=== PATIENT | male | born 1945 | race Caucasian/White ===

== ENCOUNTER 2017-11-24 05:41 | Day surgery (SDC) | payer MEDICARE ==
[2017-11-20 14:57] VITALS: BP 95/66
[2017-11-24] VITALS (11 sets, daily range): BP systolic 100–120; BP diastolic 54–67
[~2017-11-24] VITALS: Ht 170.2 cm; Wt 89.2 kg
[~2017-11-24 05:41] MED LIST: ACET1TAB12 PO; ATOR10 PO; CITA40TA14 PO; METO10TA3 PO; NEBI5TAB8 PO; OMEP20TA25 PO; SACU1TAB PO; TIZA4TAB4 PO; TRAZ-144 PO; [UNRECOGNIZED DRUG - CODE] PO
[2017-11-24] MEDS ORDERED: ISOVUE-M 200 20 ML VIAL IT ONE (06:58)
== END 2017-11-24 11:30 | disposition home or self-care (01) ==
LOC: DAH 05:41
PROVIDERS: ATTEND Neurological Surgery
DX: M54.16 Radiculopathy, lumbar region (principal); M48.061 Spinal stenosis, lumbar region without neurogenic claudication; M41.86 Other forms of scoliosis, lumbar region
CPT/HCPCS: 62304; 72132; Q9966

== ENCOUNTER 2018-03-08 15:00 | Inpatient (IN) | payer MEDICARE ==
[~2018-03-08] VITALS: Ht 167.6 cm; Wt 86.0 kg
[2018-03-08 12:54] VITALS: BP 105/61
[2018-03-08 13:14] LABS: BASOPHILS % (AUTO) 0.8 % (0.0-5.0); EOSINOPHILS % (AUTO) 2.7 % (0.0-8.0); HEMATOCRIT 35.5 % (42-54); LYMPHOCYTES % (AUTO) 15.4 % (21.0-51.0); MEAN CORPUSCULAR HEMOGLOBIN 31.2 pg (27.0-33.0); MEAN CORPUSCULAR HGB CONC 35.4 g/dL (32.0-36.0); MEAN CORPUSCULAR VOLUME 88.1 fL (79-99); MONOCYTES % (AUTO) 8.7 % (3.0-13.0); NEUTROPHILS % (AUTO) 72.4 % (40.0-77.0); NUCLEATED RED BLOOD CELLS 0.2 % (0.0-0.19); PLATELET COUNT (AUTO) 111 K/uL (130-400); RED BLOOD CELL COUNT(AUTO) 4.03 MIL/uL (4.50-6.20); RED CELL DISTRIBUTION WIDTH 13.4 % (11.0-15.5)
[2018-03-08 13:20] LABS: CREATININE 1.1 mg/dL (0.5-1.5); POTASSIUM 4.2 mmol/L (3.5-5.1)
[~2018-03-08 15:00] MED LIST changes: -ACET1TAB12 PO; -METO10TA3 PO; -TIZA4TAB4 PO; -TRAZ-144 PO; +TRAZ-185 PO; -[UNRECOGNIZED DRUG - CODE] PO
[2018-03-10] VITALS (48 sets, daily range): BP systolic 74–114; BP diastolic 41–64
[2018-03-10] MEDS ORDERED: LACTATED RINGERS 1000ML 1,000 ML IV ONE (06:16)
[2018-03-10] MEDS ORDERED: DURAMORPH PF1 MG/ML 10ML AMP IV ONE (06:43)
[2018-03-10] MEDS ORDERED: THROMBIN-JMI 20000 UNIT KIT TP ONE (06:44)
[2018-03-10] MEDS ORDERED: BACITRACIN 50,000 UNIT VIAL ONE ×2 (06:44→08:20)
[2018-03-10] MEDS: BUPIVACAINE/EPI/PF 0.25% 50 ML VIAL IV SCH ×2 (06:45→08:03)
[2018-03-10] MEDS ORDERED: LIDOCAINE PF 2% 5ML ABBOJECT ONE (07:12)
[2018-03-10] MEDS ORDERED: ONDANSETRON HCL 4 MG/2 ML VIAL ONE ×2 (07:12→10:14)
[2018-03-10] MEDS ORDERED: NEOSTIGMINE 5MG/5ML SYR IV ONE (07:12)
[2018-03-10] MEDS ORDERED: GLYCOPYRROLATE 0.2 MG/ML 5 ML VIAL ONE (07:12)
[2018-03-10] MEDS ORDERED: DEXAMETHASONE SOD PHOSPHATE 10MG/ML 1ML VIAL ONE ×2 (07:12→10:14)
[2018-03-10] MEDS ORDERED: PROPOFOL 10 MG/ML 20ML VIAL IV ONE (07:14)
[2018-03-10] MEDS ORDERED: FENTANYL CITRATE PF 50 MCG/1 ML 2ML VIAL ONE ×6 (07:14→16:13)
[2018-03-10] MEDS ORDERED: MIDAZOLAM HCL 1 MG/ML 2ML VIAL ONE ×2 (07:14→07:15)
[2018-03-10] MEDS: CEFAZOLIN SODIUM 1 GM VIAL ONE ×2 (07:20→07:40)
[2018-03-10] MEDS ORDERED: EPHEDRINE SULFATE 50 MG/ML AMPULE ONE ×2 (07:38→12:23)
[2018-03-10] MEDS ORDERED: PHYTONADIONE 10 MG/1 ML AMP SQ SCH (10:09)
[2018-03-10] MEDS ORDERED: ESMOLOL HCL 10 MG/ML 10 ML VIAL ONE (10:10)
[2018-03-10] MEDS ORDERED: METOCLOPRAMIDE 10 MG/2 ML VIAL ONE (10:13)
[2018-03-10] MEDS ORDERED: SUCCINYLCHOLINE CHLORIDE 20 MG/ML 10 ML VIAL ONE (10:13)
[2018-03-10] MEDS ORDERED: ROCURONIUM BROMIDE 10MG/1ML 5ML VL ONE ×2 (10:13)
[2018-03-10] MEDS ORDERED: LIDOCAINE HCL 4% LTA SOL 4 ML VIAL ONE (10:14)
[2018-03-10] MEDS ORDERED: PHENYLEPHRINE HCL 10 MG/ML 1ML VIAL IV ONE (10:14)
[2018-03-10 10:27] LABS: INR 1.15 (0.85-1.15); PARTIAL THROMBOPLASTIN TIME 26.9 SEC (26.3-35.5)
[2018-03-10 11:03] LABS: PLATELET FUNCTION ANALYSIS ADP > 300 SEC (62-100); PLATELET FUNCTION ANALYSIS EPI > 300 SEC (55-192)
[2018-03-10 11:25] LABS: HEMATOCRIT 29.4 % (42-54); PLATELET COUNT (AUTO) 110 K/uL (130-400)
[2018-03-10] MEDS: LACTATED RINGERS 1000ML 1,000 ML IV SCH ×2 (11:33→23:56)
[2018-03-10] MEDS ORDERED: CEFAZOLIN SODIUM 1 GM VIAL ONE (11:37)
[2018-03-10] MEDS ORDERED: CEFAZOLIN SODIUM 1 GM VIAL IVP SCH (11:45)
[2018-03-10] MEDS ORDERED: SODIUM CHLORIDE 0.9% 10 ML VIAL IVP PRN (11:45)
[2018-03-10] MEDS ORDERED: PROMETHAZINE HCL 25 MG/ML 1ML AMPULE IM PRN (11:45)
[2018-03-10] MEDS ORDERED: CEFAZOLIN 2GM / 50 ML 50 ML IV SCH (11:45)
[2018-03-10] MEDS: DEXAMETHASONE SOD PHOSPHATE 4 MG/ML 1ML VIAL IVP SCH ×3 (11:45→23:49)
[2018-03-10 12:26] LABS: HEMATOCRIT 25.5 % (42-54)
[2018-03-10] MEDS ORDERED: NOREPINEPHRINE 4MG/NS 250ML 250 ML IV SCH (14:10)
[2018-03-10 14:26] LABS: HEMATOCRIT 23.4 % (42-54); MEAN CORPUSCULAR HEMOGLOBIN 31.4 pg (27.0-33.0); MEAN CORPUSCULAR HGB CONC 36.2 g/dL (32.0-36.0); MEAN CORPUSCULAR VOLUME 86.6 fL (79-99); NUCLEATED RED BLOOD CELLS 0.1 % (0.0-0.19); PLATELET COUNT (AUTO) 98 K/uL (130-400); RED CELL DISTRIBUTION WIDTH 13.2 % (11.0-15.5); WHITE BLOOD COUNT (AUTO) 7.8 K/uL (4.8-10.8)
[2018-03-10] MEDS ORDERED: MORPHINE SULFATE 4 MG/1ML SYG ONE (14:57)
[2018-03-10] MEDS ORDERED: HYDROMORPHONE HCL 2 MG/ML VIAL IVP PRN (17:45)
[2018-03-10] MEDS: HYDROMORPHONE 1 MG/1 ML AMP IVP PRN (18:12)
[2018-03-10] MEDS ORDERED: NEBIVOLOL HCL 5 MG TABLET PO SCH (21:00)
[2018-03-10] MEDS: TRAZODONE HCL 50 MG TAB PO SCH (21:00)
[2018-03-10] MEDS ORDERED: ENTRESTO PO SCH (21:00)
[2018-03-10] MEDS: CITALOPRAM 20 MG TABLET PO SCH (21:00)
[2018-03-10] MEDS: MORPHINE SULFATE 2 MG/ML 1ML SYG IVP PRN (21:43)
[2018-03-11] VITALS (35 sets, daily range): BP systolic 66–153; BP diastolic 34–86
[2018-03-11] MEDS: MORPHINE SULFATE 2 MG/ML 1ML SYG IVP PRN ×4 (01:36→11:30)
[2018-03-11] MEDS: DEXAMETHASONE SOD PHOSPHATE 4 MG/ML 1ML VIAL IVP SCH ×4 (05:30→23:55)
[2018-03-11 05:46] LABS: HEMATOCRIT 23.7 % (42-54); MEAN CORPUSCULAR HEMOGLOBIN 30.6 pg (27.0-33.0); MEAN CORPUSCULAR HGB CONC 35.3 g/dL (32.0-36.0); MEAN CORPUSCULAR VOLUME 86.7 fL (79-99); NUCLEATED RED BLOOD CELLS 0.1 % (0.0-0.19); PLATELET COUNT (AUTO) 101 K/uL (130-400); RED BLOOD CELL COUNT(AUTO) 2.73 MIL/uL (4.50-6.20); RED CELL DISTRIBUTION WIDTH 13.2 % (11.0-15.5); WHITE BLOOD COUNT (AUTO) 12.6 K/uL (4.8-10.8)
[2018-03-11 06:04] LABS: CREATININE 1.1 mg/dL (0.5-1.5)
[2018-03-11] MEDS: BUPIVACAINE/EPI/PF 0.25% 50 ML VIAL IV SCH (06:45)
[2018-03-11] MEDS ORDERED: NOREPINEPHRINE 4MG/NS 250ML 250 ML IV SCH (07:45)
[2018-03-11] MEDS: PANTOPRAZOLE SODIUM 40 MG TABLET.DR PO SCH (07:46)
[2018-03-11] MEDS: ATORVASTATIN CALCIUM 10 MG TABLET PO SCH (07:46)
[2018-03-11] MEDS: HYDROCODONE/ACETAMINOPHEN 5/325 MG TAB PO PRN ×2 (07:46→11:04)
[2018-03-11] MEDS ORDERED: ENTRESTO PO SCH (09:00)
[2018-03-11] MEDS: LACTATED RINGERS 1000ML 1,000 ML IV SCH (13:32)
[2018-03-11] MEDS: TRAMADOL HCL 50 MG TABLET PO PRN ×2 (14:05→20:23)
[2018-03-11] MEDS: HYDROMORPHONE 1 MG/1 ML AMP IVP PRN (15:01)
[2018-03-11] MEDS: TRAZODONE HCL 50 MG TAB PO SCH (20:23)
[2018-03-11] MEDS: CITALOPRAM 20 MG TABLET PO SCH (20:23)
[2018-03-12] VITALS (13 sets, daily range): BP systolic 84–110; BP diastolic 37–69
[2018-03-12] MEDS: TRAMADOL HCL 50 MG TABLET PO PRN (02:29)
[2018-03-12 05:01] LABS: BASOPHILS % (AUTO) 0.2 % (0.0-5.0); EOSINOPHILS % (AUTO) 0.3 % (0.0-8.0); MEAN CORPUSCULAR HEMOGLOBIN 31.9 pg (27.0-33.0); MEAN CORPUSCULAR HGB CONC 36.7 g/dL (32.0-36.0); MEAN CORPUSCULAR VOLUME 86.9 fL (79-99); MONOCYTES % (AUTO) 7.9 % (3.0-13.0); NEUTROPHILS % (AUTO) 79.6 % (40.0-77.0); NUCLEATED RED BLOOD CELLS 0.2 % (0.0-0.19); PLATELET COUNT (AUTO) 83 K/uL (130-400); RED BLOOD CELL COUNT(AUTO) 2.53 MIL/uL (4.50-6.20); RED CELL DISTRIBUTION WIDTH 13.3 % (11.0-15.5); WHITE BLOOD COUNT (AUTO) 10.1 K/uL (4.8-10.8)
[2018-03-12 05:11] LABS: INR 1.1 (0.85-1.15); PARTIAL THROMBOPLASTIN TIME 25.2 SEC (26.3-35.5); PROTHROMBIN TIME 11.5 SEC (9.6-11.6)
[2018-03-12 05:16] LABS: CREATININE 0.9 mg/dL (0.5-1.5); MAGNESIUM 1.8 mg/dL (1.80-2.40)
[2018-03-12] MEDS: DEXAMETHASONE SOD PHOSPHATE 4 MG/ML 1ML VIAL IVP SCH (06:21)
[2018-03-12] MEDS ORDERED: SENNOSIDES 8.6 MG TABLET PO PRN (08:00)
[2018-03-12] MEDS: ATORVASTATIN CALCIUM 10 MG TABLET PO SCH (08:22)
[2018-03-12] MEDS: PANTOPRAZOLE SODIUM 40 MG TABLET.DR PO SCH (08:22)
[2018-03-12] MEDS: DOCUSATE SODIUM 100 MG CAP PO SCH ×2 (09:00→13:15)
== END 2018-03-12 16:35 | disposition home or self-care (01) | DRG 459 ==
LOC: EDSTATUS 15:00 → DAHIP 03-10 05:57 → 2CH 03-10 17:18
PROVIDERS: ADMIT Neurological Surgery; ATTEND Neurological Surgery
PROC: 0SG30K1 Fusion of Lumbosacral Joint with Nonautologous Tissue Substitute, Posterior Approach, Posterior Column, Open Approach (ICD-10-PCS; principal; 2018-03-10 07:37)
PROC: 01NB0ZZ Release Lumbar Nerve, Open Approach (ICD-10-PCS; 2018-03-10 07:37)
PROC: 30233L1 Transfusion of Nonautologous Fresh Plasma into Peripheral Vein, Percutaneous Approach (ICD-10-PCS; 2018-03-10 07:37)
PROC: 30233R1 Transfusion of Nonautologous Platelets into Peripheral Vein, Percutaneous Approach (ICD-10-PCS; 2018-03-10 07:37)
PROC: 30233K1 Transfusion of Nonautologous Frozen Plasma into Peripheral Vein, Percutaneous Approach (ICD-10-PCS; 2018-03-10 07:37)
DX: M43.17 Spondylolisthesis, lumbosacral region (principal); R57.1 Hypovolemic shock; D65 Disseminated intravascular coagulation [defibrination syndrome]; D68.9 Coagulation defect, unspecified; D62 Acute posthemorrhagic anemia; I50.30 Unspecified diastolic (congestive) heart failure; M48.061 Spinal stenosis, lumbar region without neurogenic claudication; M19.90 Unspecified osteoarthritis, unspecified site; D69.1 Qualitative platelet defects; E78.5 Hyperlipidemia, unspecified; F32.9 Major depressive disorder, single episode, unspecified; G89.4 Chronic pain syndrome; I11.0 Hypertensive heart disease with heart failure; I35.1 Nonrheumatic aortic (valve) insufficiency; I95.1 Orthostatic hypotension; Z96.659 Presence of unspecified artificial knee joint
CPT/HCPCS: 36415; 72020; 80048; 83735; 85014; 85018; 85025; 85027; 85240; 85576; 85610; 85730; 86850; 86900; 86901; 86927; A4218; A4344; J0330; J0690; J1100; J1170; J2001; J2250; J2270; J2274; J2370; J2405; J2704; J2710; J2765; J3010; J3430; J3490; J7120; P9017; P9034

== ENCOUNTER 2018-03-19 08:36 | Inpatient (IN) | payer MEDICARE ==
[~2018-03-19] VITALS: Ht 167.6 cm; Wt 88.0 kg
[2018-03-19 09:57] LABS: BASOPHILS % (AUTO) 0.2 % (0.0-5.0); EOSINOPHILS % (AUTO) 0.1 % (0.0-8.0); HEMATOCRIT 24.8 % (42-54); LYMPHOCYTES % (AUTO) 8.8 % (21.0-51.0); MEAN CORPUSCULAR HEMOGLOBIN 30.5 pg (27.0-33.0); MEAN CORPUSCULAR HGB CONC 34.6 g/dL (32.0-36.0); MEAN CORPUSCULAR VOLUME 88.2 fL (79-99); NEUTROPHILS % (AUTO) 87.9 % (40.0-77.0); NUCLEATED RED BLOOD CELLS 0.1 % (0.0-0.19); PLATELET COUNT (AUTO) 111 K/uL (130-400); RED BLOOD CELL COUNT(AUTO) 2.81 MIL/uL (4.50-6.20); RED CELL DISTRIBUTION WIDTH 13.8 % (11.0-15.5); WHITE BLOOD COUNT (AUTO) 12.1 K/uL (4.8-10.8)
[2018-03-19] MEDS ORDERED: ACETAMINOPHEN EXTRA STRENGTH 500 MG TABLET ONE (10:00)
[2018-03-19 10:03] LABS: CREATININE 1.2 mg/dL (0.5-1.5); POTASSIUM 3.4 mmol/L (3.5-5.1)
[2018-03-19] MEDS ORDERED: SODIUM CHLORIDE 0.9% 1000ML 1,000 ML IV ONE (10:04)
[2018-03-19] MEDS ORDERED: ONDANSETRON HCL 4 MG/2 ML VIAL ONE (10:10)
[2018-03-19] MEDS ORDERED: HYDROMORPHONE 1 MG/1 ML AMP ONE (10:11)
[2018-03-19] MEDS ORDERED: ZOSYN 3.375GM+NS 50ML 50 ML IV ONE (10:42)
[2018-03-19 11:32] LABS: APPEARANCE,URINE Clear (CLEAR); BILIRUBIN,URINE Negative (NEGATIVE); COLOR,URINE Yellow (YELLOW); GLUCOSE, URINE (UA) Negative (NEGATIVE); KETONES,URINE Negative (NEGATIVE); LEUKOCYTE ESTERASE ,URINE Negative (NEGATIVE); NITRATE,URINE Negative (NEGATIVE); OCCULT BLOOD,URINE Negative (NEGATIVE); PROTEIN,URINE Trace (NEGATIVE); UROBILINOGEN,URINE 0.2 mg/dL (0.2-1.0)
[2018-03-19 11:52] LABS: BACTERIA,URINE Rare /HPF (None Seen); RBC,URINE 0-1 /HPF (0-1); SQUAMOUS EPITHELIAL CELL,UR Rare /HPF (0-2); WBC,URINE 0-1 /HPF (0-1)
[2018-03-19 13:45] VITALS: BP 123/62
[2018-03-19] MEDS ORDERED: HYDROMORPHONE 1 MG/1 ML AMP IVP PRN (14:15)
[2018-03-19] MEDS ORDERED: ONDANSETRON HCL 4 MG/2 ML VIAL IVP PRN (14:15)
[2018-03-19 16:00] VITALS: BP 120/66
[2018-03-19] MEDS ORDERED: ACETAMINOPHEN 325 MG TAB ONE (16:42)
[2018-03-19] MEDS ORDERED: POTASSIUM CHLORIDE 20MEQ/100ML 100 ML IV PRN (16:45)
[2018-03-19] MEDS ORDERED: LIDOCAINE HCL-MPF 1% 2ML VIAL IVP PRN (16:45)
[2018-03-19] MEDS ORDERED: POTASSIUM CHLORIDE 10% ELIXIR 20 MEQ/15 ML UDCUP PO PRN (16:45)
[2018-03-19] MEDS ORDERED: SODIUM CHLORIDE 0.9% 1000ML 1,000 ML IV SCH (16:45)
[2018-03-19] MEDS: ZOSYN 3.375GM+NS 50ML 50 ML IV SCH (18:00)
[2018-03-19] MEDS ORDERED: MAGNESIUM 2GM PREMIX 50ML 50 ML IV SCH (19:15)
[2018-03-19] MEDS: ACETAMINOPHEN 325 MG TAB PO PRN ×2 (19:30→23:58)
[2018-03-19] MEDS: POTASSIUM CHLORIDE 20 MEQ ERTAB PO PRN (19:31)
[2018-03-19 19:33] LABS: ALBUMIN 2.5 g/dL (3.5-5.0); CREATININE 1.1 mg/dL (0.5-1.5); POTASSIUM 4.1 mmol/L (3.5-5.1); TOTAL PROTEIN, SERUM 5.8 g/dL (6.0-8.3)
[2018-03-19] MEDS: SODIUM CHLORIDE 0.9% 1000ML 1,000 ML IV SCH (19:38)
[2018-03-19 20:00] VITALS: BP 122/58
[2018-03-19] MEDS: GABAPENTIN 300 MG CAPSULE PO SCH (21:15)
[2018-03-19] MEDS: HYDROMORPHONE 1 MG/1 ML AMP IVP PRN (21:26)
[2018-03-20] VITALS: BP 127/62
[2018-03-20] MEDS: ZOSYN 3.375GM+NS 50ML 50 ML IV SCH ×3 (01:35→18:11)
[2018-03-20] MEDS: HYDROMORPHONE 1 MG/1 ML AMP IVP PRN ×6 (01:38→22:21)
[2018-03-20 04:00] VITALS: BP 130/68
[2018-03-20 04:41] LABS: HEMATOCRIT 25.2 % (42-54); MEAN CORPUSCULAR HEMOGLOBIN 30.5 pg (27.0-33.0); MEAN CORPUSCULAR HGB CONC 35.1 g/dL (32.0-36.0); NUCLEATED RED BLOOD CELLS 0.7 % (0.0-0.19); PLATELET COUNT (AUTO) 103 K/uL (130-400); RED BLOOD CELL COUNT(AUTO) 2.89 MIL/uL (4.50-6.20); RED CELL DISTRIBUTION WIDTH 13.9 % (11.0-15.5); WHITE BLOOD COUNT (AUTO) 12.9 K/uL (4.8-10.8)
[2018-03-20 04:52] LABS: ALBUMIN 2.6 g/dL (3.5-5.0); BILIRUBIN,TOTAL 1.1 mg/dL (0.2-1.0); CREATININE 1.1 mg/dL (0.5-1.5); MAGNESIUM 2.2 mg/dL (1.80-2.40); POTASSIUM 3.8 mmol/L (3.5-5.1); TOTAL PROTEIN, SERUM 6.2 g/dL (6.0-8.3)
[2018-03-20] MEDS: SODIUM CHLORIDE 0.9% 1000ML 1,000 ML IV SCH ×2 (06:05→08:46)
[2018-03-20] MEDS ORDERED: VANCOMYCIN HCL 1 GM VIAL IV ONE (06:30)
[2018-03-20] MEDS ORDERED: VANCOMYCIN 1GM+NS 250ML 250 ML IV ONE (06:42)
[2018-03-20] MEDS ORDERED: VANCOMYCIN 1GM+NS 250ML 250 ML IV SCH (07:00)
[2018-03-20 08:10] VITALS: BP 121/61
[2018-03-20] MEDS: GABAPENTIN 300 MG CAPSULE PO SCH ×2 (08:43→19:55)
[2018-03-20 11:33] VITALS: BP 104/60
[2018-03-20] MEDS ORDERED: PANTOPRAZOLE SODIUM 40 MG TABLET.DR PO ONE (12:16)
[2018-03-20] MEDS: PANTOPRAZOLE SODIUM 40 MG TABLET.DR PO SCH (12:23)
[2018-03-20] MEDS: OXYCODONE HCL 5 MG TAB PO PRN ×2 (12:23→18:11)
[2018-03-20] MEDS: ACETAMINOPHEN 325 MG TAB PO PRN (12:24)
[2018-03-20] MEDS: METRONIDAZOLE 500MG/100ML BAG 100 ML IV SCH ×2 (13:12→22:16)
[2018-03-20 16:19] VITALS: BP 109/77
[2018-03-20] MEDS: TRAZODONE HCL 50 MG TAB PO SCH (19:55)
[2018-03-20] MEDS: CITALOPRAM 20 MG TABLET PO SCH (19:56)
[2018-03-20 20:12] VITALS: BP 125/67
[2018-03-21] MEDS: OXYCODONE HCL 5 MG TAB PO PRN ×4 (00:05→20:18)
[2018-03-21 00:12] VITALS: BP 117/63
[2018-03-21] MEDS: ZOSYN 3.375GM+NS 50ML 50 ML IV SCH ×2 (02:15→09:05)
[2018-03-21] MEDS: HYDROMORPHONE 1 MG/1 ML AMP IVP PRN ×6 (02:16→22:03)
[2018-03-21 04:12] VITALS: BP 119/64
[2018-03-21 04:56] LABS: BASOPHILS % (AUTO) 0.2 % (0.0-5.0); EOSINOPHILS % (AUTO) 0.6 % (0.0-8.0); HEMATOCRIT 23.6 % (42-54); MEAN CORPUSCULAR HEMOGLOBIN 30.3 pg (27.0-33.0); MEAN CORPUSCULAR HGB CONC 34.7 g/dL (32.0-36.0); MEAN CORPUSCULAR VOLUME 87.3 fL (79-99); MONOCYTES % (AUTO) 5.3 % (3.0-13.0); NEUTROPHILS % (AUTO) 85.9 % (40.0-77.0); NUCLEATED RED BLOOD CELLS 0.3 % (0.0-0.19); PLATELET COUNT (AUTO) 99 K/uL (130-400); RED CELL DISTRIBUTION WIDTH 14.3 % (11.0-15.5); WHITE BLOOD COUNT (AUTO) 11.2 K/uL (4.8-10.8)
[2018-03-21 04:59] LABS: POTASSIUM 3.3 mmol/L (3.5-5.1)
[2018-03-21 05:10] LABS: B-TYPE NATRIURETIC PEPTIDE 99 pg/mL (0-100)
[2018-03-21] MEDS: POTASSIUM CHLORIDE 20 MEQ ERTAB PO PRN ×3 (06:01→18:22)
[2018-03-21] MEDS: METRONIDAZOLE 500MG/100ML BAG 100 ML IV SCH ×3 (06:02→20:18)
[2018-03-21 06:28] LABS: % IRON SATURATION 24.8 % (30-44)
[2018-03-21 08:17] VITALS: BP 109/69
[2018-03-21] MEDS: SODIUM CHLORIDE 0.9% 1000ML 1,000 ML IV SCH ×2 (08:45→20:19)
[2018-03-21] MEDS: PANTOPRAZOLE SODIUM 40 MG TABLET.DR PO SCH (09:04)
[2018-03-21] MEDS: ATORVASTATIN CALCIUM 20 MG TABLET PO SCH (09:04)
[2018-03-21] MEDS: GABAPENTIN 300 MG CAPSULE PO SCH ×2 (09:05→20:18)
[2018-03-21 12:28] VITALS: BP 100/63
[2018-03-21 16:28] VITALS: BP 112/66
[2018-03-21 20:16] VITALS: BP 110/59
[2018-03-21] MEDS: CITALOPRAM 20 MG TABLET PO SCH (20:18)
[2018-03-21] MEDS: TRAZODONE HCL 50 MG TAB PO SCH (20:18)
[2018-03-22 00:16] VITALS: BP 96/53
[2018-03-22] MEDS: OXYCODONE HCL 5 MG TAB PO PRN ×6 (00:24→20:50)
[2018-03-22] MEDS: HYDROMORPHONE 1 MG/1 ML AMP IVP PRN ×6 (02:05→22:53)
[2018-03-22 04:24] VITALS: BP 104/63
[2018-03-22 04:57] LABS: BASOPHILS % (AUTO) 0.4 % (0.0-5.0); EOSINOPHILS % (AUTO) 1.9 % (0.0-8.0); LYMPHOCYTES % (AUTO) 14.6 % (21.0-51.0); MEAN CORPUSCULAR HEMOGLOBIN 30.6 pg (27.0-33.0); MEAN CORPUSCULAR HGB CONC 35.6 g/dL (32.0-36.0); MONOCYTES % (AUTO) 6.6 % (3.0-13.0); NEUTROPHILS % (AUTO) 76.5 % (40.0-77.0); NUCLEATED RED BLOOD CELLS 0.1 % (0.0-0.19); PLATELET COUNT (AUTO) 93 K/uL (130-400); RED BLOOD CELL COUNT(AUTO) 2.38 MIL/uL (4.50-6.20); RED CELL DISTRIBUTION WIDTH 14.1 % (11.0-15.5); WHITE BLOOD COUNT (AUTO) 8.9 K/uL (4.8-10.8)
[2018-03-22 05:06] LABS: HEMATOCRIT 20.5 % (42-54)
[2018-03-22 05:15] LABS: CREATININE 0.8 mg/dL (0.5-1.5); POTASSIUM 3.7 mmol/L (3.5-5.1)
[2018-03-22] MEDS: METRONIDAZOLE 500MG/100ML BAG 100 ML IV SCH ×3 (05:28→22:52)
[2018-03-22 07:42] VITALS: BP 107/63
[2018-03-22] MEDS: PANTOPRAZOLE SODIUM 40 MG TABLET.DR PO SCH (08:23)
[2018-03-22] MEDS: ATORVASTATIN CALCIUM 20 MG TABLET PO SCH (08:23)
[2018-03-22] MEDS: GABAPENTIN 300 MG CAPSULE PO SCH ×2 (08:23→20:49)
[2018-03-22 11:28] VITALS: BP 151/55
[2018-03-22] MEDS: SODIUM CHLORIDE 0.9% 1000ML 1,000 ML IV SCH (12:16)
[2018-03-22 14:52] LABS: HEMATOCRIT 22.1 % (42-54)
[2018-03-22 15:21] LABS: HEMATOCRIT 22.4 % (42-54); PLATELET COUNT (AUTO) 104 K/uL (130-400); PLATELET FUNCTION ANALYSIS EPI 127 SEC (55-192)
[2018-03-22 16:33] VITALS: BP 131/52
[2018-03-22 17:04] LABS: ABG BASE EXCESS 2.4 mmol/L (-2.0-3.0); ABG HCO3 23.8 mmol/L (21.0-28.0); ABG PCO2 29 mmHg (35-48)
[2018-03-22] MEDS ORDERED: HYDROCORTISONE 0.5% 30 GM OINT TP PRN (18:45)
[2018-03-22] MEDS ORDERED: HYDROCORTISONE 1% 28.35 GM CREAM TP PRN (18:51)
[2018-03-22 19:47] LABS: HEMATOCRIT 21.6 % (42-54)
[2018-03-22 20:00] VITALS: BP 128/70
[2018-03-22] MEDS: CITALOPRAM 20 MG TABLET PO SCH (20:49)
[2018-03-22] MEDS: TRAZODONE HCL 50 MG TAB PO SCH (20:49)
[2018-03-23] VITALS: BP 132/63
[2018-03-23] MEDS: SODIUM CHLORIDE 0.9% 1000ML 1,000 ML IV SCH ×2 (00:55→14:05)
[2018-03-23] MEDS: OXYCODONE HCL 5 MG TAB PO PRN ×4 (01:55→18:33)
[2018-03-23] MEDS: HYDROMORPHONE 1 MG/1 ML AMP IVP PRN ×3 (03:12→11:15)
[2018-03-23 03:36] LABS: BASOPHILS % (AUTO) 0.6 % (0.0-5.0); EOSINOPHILS % (AUTO) 2.3 % (0.0-8.0); HEMATOCRIT 21.2 % (42-54); LYMPHOCYTES % (AUTO) 15.9 % (21.0-51.0); MEAN CORPUSCULAR HEMOGLOBIN 30.4 pg (27.0-33.0); MEAN CORPUSCULAR HGB CONC 35.3 g/dL (32.0-36.0); MONOCYTES % (AUTO) 7.6 % (3.0-13.0); NEUTROPHILS % (AUTO) 73.6 % (40.0-77.0); NUCLEATED RED BLOOD CELLS 0.2 % (0.0-0.19); PLATELET COUNT (AUTO) 100 K/uL (130-400); RED BLOOD CELL COUNT(AUTO) 2.47 MIL/uL (4.50-6.20); RED CELL DISTRIBUTION WIDTH 14.2 % (11.0-15.5); WHITE BLOOD COUNT (AUTO) 8.6 K/uL (4.8-10.8)
[2018-03-23 03:42] LABS: CREATININE 0.8 mg/dL (0.5-1.5); POTASSIUM 3.4 mmol/L (3.5-5.1)
[2018-03-23 04:00] VITALS: BP 124/55
[2018-03-23] MEDS: METRONIDAZOLE 500MG/100ML BAG 100 ML IV SCH ×3 (05:56→21:04)
[2018-03-23 08:03] VITALS: BP 118/66
[2018-03-23] MEDS: PANTOPRAZOLE SODIUM 40 MG TABLET.DR PO SCH (08:54)
[2018-03-23] MEDS: ATORVASTATIN CALCIUM 20 MG TABLET PO SCH (08:54)
[2018-03-23] MEDS: GABAPENTIN 300 MG CAPSULE PO SCH ×2 (08:55→21:03)
[2018-03-23 11:17] VITALS: BP 111/76
[2018-03-23] MEDS: HYDROMORPHONE PCA 10 MG/50 ML 50 ML IV PRN (13:43)
[2018-03-23] MEDS ORDERED: POTASSIUM CHLORIDE 20 MEQ ERTAB PO SCH (16:00)
[2018-03-23 16:44] VITALS: BP 123/66
[2018-03-23 20:00] VITALS: BP 111/68
[2018-03-23] MEDS: TRAZODONE HCL 50 MG TAB PO SCH (21:03)
[2018-03-23] MEDS: CITALOPRAM 20 MG TABLET PO SCH (21:03)
[2018-03-24] VITALS (7 sets, daily range): BP systolic 98–146; BP diastolic 53–78
[2018-03-24] MEDS: OXYCODONE HCL 5 MG TAB PO PRN ×5 (02:02→20:43)
[2018-03-24 04:50] LABS: BASOPHILS % (AUTO) 0.9 % (0.0-5.0); EOSINOPHILS % (AUTO) 1.9 % (0.0-8.0); HEMATOCRIT 21.4 % (42-54); LYMPHOCYTES % (AUTO) 16.3 % (21.0-51.0); MEAN CORPUSCULAR HEMOGLOBIN 30.4 pg (27.0-33.0); MEAN CORPUSCULAR HGB CONC 34.7 g/dL (32.0-36.0); MEAN CORPUSCULAR VOLUME 87.6 fL (79-99); MONOCYTES % (AUTO) 7.2 % (3.0-13.0); NEUTROPHILS % (AUTO) 73.7 % (40.0-77.0); NUCLEATED RED BLOOD CELLS 0.2 % (0.0-0.19); PLATELET COUNT (AUTO) 110 K/uL (130-400); RED BLOOD CELL COUNT(AUTO) 2.44 MIL/uL (4.50-6.20); RED CELL DISTRIBUTION WIDTH 14.5 % (11.0-15.5); WHITE BLOOD COUNT (AUTO) 9.7 K/uL (4.8-10.8)
[2018-03-24] MEDS: METRONIDAZOLE 500MG/100ML BAG 100 ML IV SCH ×3 (05:02→20:44)
[2018-03-24] MEDS: SODIUM CHLORIDE 0.9% 1000ML 1,000 ML IV SCH (05:02)
[2018-03-24 05:03] LABS: CREATININE 0.9 mg/dL (0.5-1.5); POTASSIUM 4.1 mmol/L (3.5-5.1)
[2018-03-24] MEDS: HYDROMORPHONE PCA 10 MG/50 ML 50 ML IV PRN (06:01)
[2018-03-24] MEDS: ATORVASTATIN CALCIUM 20 MG TABLET PO SCH (09:35)
[2018-03-24] MEDS: PANTOPRAZOLE SODIUM 40 MG TABLET.DR PO SCH (09:35)
[2018-03-24] MEDS: GABAPENTIN 300 MG CAPSULE PO SCH ×2 (09:35→20:42)
[2018-03-24] MEDS ORDERED: KETOROLAC TROMETHAMINE 15MG/ML IV PRN (12:45)
[2018-03-24] MEDS: TRAZODONE HCL 50 MG TAB PO SCH (20:43)
[2018-03-24] MEDS: CITALOPRAM 20 MG TABLET PO SCH (20:43)
[2018-03-25] MEDS: OXYCODONE HCL 5 MG TAB PO PRN ×3 (02:50→12:23)
[2018-03-25] MEDS: HYDROMORPHONE PCA 10 MG/50 ML 50 ML IV PRN ×2 (03:28→22:18)
[2018-03-25 04:00] VITALS: BP 124/74
[2018-03-25 05:28] LABS: BASOPHILS % (AUTO) 1.1 % (0.0-5.0); EOSINOPHILS % (AUTO) 2.6 % (0.0-8.0); HEMATOCRIT 21.2 % (42-54); LYMPHOCYTES % (AUTO) 18.5 % (21.0-51.0); MEAN CORPUSCULAR HEMOGLOBIN 30.2 pg (27.0-33.0); MEAN CORPUSCULAR HGB CONC 34.1 g/dL (32.0-36.0); MEAN CORPUSCULAR VOLUME 88.6 fL (79-99); MONOCYTES % (AUTO) 7.1 % (3.0-13.0); NEUTROPHILS % (AUTO) 70.7 % (40.0-77.0); NUCLEATED RED BLOOD CELLS 1.3 % (0.0-0.19); PLATELET COUNT (AUTO) 112 K/uL (130-400); RED BLOOD CELL COUNT(AUTO) 2.39 MIL/uL (4.50-6.20); RED CELL DISTRIBUTION WIDTH 14.7 % (11.0-15.5); WHITE BLOOD COUNT (AUTO) 9.2 K/uL (4.8-10.8)
[2018-03-25] MEDS: METRONIDAZOLE 500MG/100ML BAG 100 ML IV SCH ×3 (05:35→21:41)
[2018-03-25 05:43] LABS: CREATININE 0.8 mg/dL (0.5-1.5); POTASSIUM 3.6 mmol/L (3.5-5.1)
[2018-03-25] MEDS: POTASSIUM CHLORIDE 20 MEQ ERTAB PO PRN ×2 (07:39→12:21)
[2018-03-25 08:00] VITALS: BP 109/69
[2018-03-25 11:40] VITALS: BP 115/64
[2018-03-25] MEDS: ATORVASTATIN CALCIUM 20 MG TABLET PO SCH (12:21)
[2018-03-25] MEDS: PANTOPRAZOLE SODIUM 40 MG TABLET.DR PO SCH (12:22)
[2018-03-25] MEDS: GABAPENTIN 300 MG CAPSULE PO SCH ×2 (12:22→21:41)
[2018-03-25 16:00] VITALS: BP 113/71
[2018-03-25 20:00] VITALS: BP 135/78
[2018-03-25] MEDS: CITALOPRAM 20 MG TABLET PO SCH (21:41)
[2018-03-25] MEDS: TRAZODONE HCL 50 MG TAB PO SCH (21:41)
[2018-03-25] MEDS ORDERED: SODIUM CHLORIDE 0.9% 500ML 500 ML IV ONE (22:43)
[2018-03-25 23:48] VITALS: BP 95/60
[2018-03-26 04:00] VITALS: BP 120/70
[2018-03-26] MEDS: OXYCODONE HCL 5 MG TAB PO PRN ×4 (04:01→21:11)
[2018-03-26] MEDS: METRONIDAZOLE 500MG/100ML BAG 100 ML IV SCH ×3 (05:05→21:12)
[2018-03-26 06:17] LABS: BASOPHILS % (AUTO) 0.8 % (0.0-5.0); EOSINOPHILS % (AUTO) 1.2 % (0.0-8.0); MEAN CORPUSCULAR HEMOGLOBIN 29.9 pg (27.0-33.0); MEAN CORPUSCULAR VOLUME 87.8 fL (79-99); MONOCYTES % (AUTO) 8.8 % (3.0-13.0); NEUTROPHILS % (AUTO) 73.2 % (40.0-77.0); PLATELET COUNT (AUTO) 112 K/uL (130-400); RED BLOOD CELL COUNT(AUTO) 2.85 MIL/uL (4.50-6.20); RED CELL DISTRIBUTION WIDTH 14.5 % (11.0-15.5)
[2018-03-26 06:24] LABS: CREATININE 0.8 mg/dL (0.5-1.5); POTASSIUM 3.9 mmol/L (3.5-5.1)
[2018-03-26 07:00] VITALS: BP 105/65
[2018-03-26] MEDS: GABAPENTIN 300 MG CAPSULE PO SCH ×2 (09:04→21:12)
[2018-03-26] MEDS: ATORVASTATIN CALCIUM 20 MG TABLET PO SCH (09:04)
[2018-03-26] MEDS: PANTOPRAZOLE SODIUM 40 MG TABLET.DR PO SCH (09:04)
[2018-03-26 11:00] VITALS: BP 117/66
[2018-03-26] MEDS ORDERED: PERMETHRIN CREAM 5% 60GM TUBE TP SCH (14:30)
[2018-03-26] MEDS ORDERED: HYDROXYZINE HCL 25 MG TABLET PO PRN (14:30)
[2018-03-26 16:00] VITALS: BP 123/70
[2018-03-26 19:52] VITALS: BP 126/71
[2018-03-26] MEDS: LACTOBACILLUS RHAMNOSUS GG 1 EACH CAP.SPRINK PO SCH (21:00)
[2018-03-26] MEDS: CITALOPRAM 20 MG TABLET PO SCH (21:11)
[2018-03-26] MEDS: TRAZODONE HCL 50 MG TAB PO SCH (21:12)
[2018-03-26] MEDS: HYDROMORPHONE PCA 10 MG/50 ML 50 ML IV PRN (23:24)
[2018-03-26 23:41] VITALS: BP 119/68
[2018-03-27 04:00] VITALS: BP 128/78
[2018-03-27] MEDS: METRONIDAZOLE 500MG/100ML BAG 100 ML IV SCH ×2 (05:51→13:49)
[2018-03-27 06:00] LABS: BASOPHILS % (AUTO) 0.7 % (0.0-5.0); EOSINOPHILS % (AUTO) 0.9 % (0.0-8.0); HEMATOCRIT 25.4 % (42-54); LYMPHOCYTES % (AUTO) 17.6 % (21.0-51.0); MEAN CORPUSCULAR HEMOGLOBIN 31.5 pg (27.0-33.0); MEAN CORPUSCULAR VOLUME 87.5 fL (79-99); MONOCYTES % (AUTO) 8.7 % (3.0-13.0); NEUTROPHILS % (AUTO) 72.1 % (40.0-77.0); NUCLEATED RED BLOOD CELLS 0.5 % (0.0-0.19); PLATELET COUNT (AUTO) 132 K/uL (130-400); RED BLOOD CELL COUNT(AUTO) 2.91 MIL/uL (4.50-6.20); RED CELL DISTRIBUTION WIDTH 15.3 % (11.0-15.5); WHITE BLOOD COUNT (AUTO) 10.6 K/uL (4.8-10.8)
[2018-03-27 06:21] LABS: CREATININE 0.8 mg/dL (0.5-1.5); POTASSIUM 3.6 mmol/L (3.5-5.1)
[2018-03-27 07:00] VITALS: BP 128/76
[2018-03-27] MEDS: ATORVASTATIN CALCIUM 20 MG TABLET PO SCH (08:16)
[2018-03-27] MEDS: LACTOBACILLUS RHAMNOSUS GG 1 EACH CAP.SPRINK PO SCH ×2 (08:16→16:53)
[2018-03-27] MEDS: PANTOPRAZOLE SODIUM 40 MG TABLET.DR PO SCH (08:17)
[2018-03-27] MEDS: GABAPENTIN 300 MG CAPSULE PO SCH ×2 (08:17→21:17)
[2018-03-27] MEDS: OXYCODONE HCL 5 MG TAB PO PRN (08:17)
[2018-03-27 11:00] VITALS: BP 129/74
[2018-03-27] MEDS: METRONIDAZOLE 500 MG TABLET PO SCH ×2 (15:15→21:17)
[2018-03-27 15:57] VITALS: BP 130/77
[2018-03-27] MEDS: POTASSIUM CHLORIDE 20 MEQ ERTAB PO PRN ×2 (16:53→18:46)
[2018-03-27] MEDS: HYDROCODONE/ACETAMINOPHEN 10/325 MG TAB PO PRN ×2 (17:52→22:07)
[2018-03-27 19:40] VITALS: BP 145/82
[2018-03-27] MEDS: CITALOPRAM 20 MG TABLET PO SCH (21:16)
[2018-03-27] MEDS: TRAZODONE HCL 50 MG TAB PO SCH (21:17)
[2018-03-28 00:01] VITALS: BP 118/68
[2018-03-28] MEDS: HYDROCODONE/ACETAMINOPHEN 10/325 MG TAB PO PRN ×5 (03:03→20:08)
[2018-03-28 04:00] VITALS: BP 118/73
[2018-03-28 05:55] LABS: HEMATOCRIT 25.3 % (42-54); MEAN CORPUSCULAR HEMOGLOBIN 30.3 pg (27.0-33.0); MEAN CORPUSCULAR HGB CONC 34.6 g/dL (32.0-36.0); MEAN CORPUSCULAR VOLUME 87.6 fL (79-99); NUCLEATED RED BLOOD CELLS 0.3 % (0.0-0.19); PLATELET COUNT (AUTO) 114 K/uL (130-400); RED BLOOD CELL COUNT(AUTO) 2.89 MIL/uL (4.50-6.20); RED CELL DISTRIBUTION WIDTH 15.3 % (11.0-15.5)
[2018-03-28 06:06] LABS: CREATININE 0.9 mg/dL (0.5-1.5); POTASSIUM 3.9 mmol/L (3.5-5.1)
[2018-03-28] MEDS: ATORVASTATIN CALCIUM 20 MG TABLET PO SCH (07:51)
[2018-03-28] MEDS: LACTOBACILLUS RHAMNOSUS GG 1 EACH CAP.SPRINK PO SCH ×2 (07:51→16:17)
[2018-03-28] MEDS: GABAPENTIN 300 MG CAPSULE PO SCH ×2 (07:51→20:09)
[2018-03-28] MEDS: METRONIDAZOLE 500 MG TABLET PO SCH ×2 (07:51→14:54)
[2018-03-28] MEDS: PANTOPRAZOLE SODIUM 40 MG TABLET.DR PO SCH (07:51)
[2018-03-28 08:00] VITALS: BP 134/80
[2018-03-28 11:00] VITALS: BP 116/68
[2018-03-28 16:00] VITALS: BP 125/71
[2018-03-28] MEDS: TRAZODONE HCL 50 MG TAB PO SCH (20:08)
[2018-03-28] MEDS: CITALOPRAM 20 MG TABLET PO SCH (20:09)
[2018-03-28 20:40] VITALS: BP 125/70
[2018-03-29] VITALS (7 sets, daily range): BP systolic 99–136; BP diastolic 58–80
[2018-03-29] MEDS: HYDROCODONE/ACETAMINOPHEN 10/325 MG TAB PO PRN ×6 (00:22→21:50)
[2018-03-29] MEDS: METRONIDAZOLE 500 MG TABLET PO SCH ×4 (00:22→21:49)
[2018-03-29 06:28] LABS: BASOPHILS % (AUTO) 0.9 % (0.0-5.0); EOSINOPHILS % (AUTO) 1.2 % (0.0-8.0); LYMPHOCYTES % (AUTO) 22.6 % (21.0-51.0); MEAN CORPUSCULAR HEMOGLOBIN 31.8 pg (27.0-33.0); MEAN CORPUSCULAR VOLUME 88.2 fL (79-99); MONOCYTES % (AUTO) 5.8 % (3.0-13.0); NEUTROPHILS % (AUTO) 69.5 % (40.0-77.0); NUCLEATED RED BLOOD CELLS 0.7 % (0.0-0.19); PLATELET COUNT (AUTO) 120 K/uL (130-400); RED BLOOD CELL COUNT(AUTO) 2.94 MIL/uL (4.50-6.20); RED CELL DISTRIBUTION WIDTH 15.4 % (11.0-15.5); WHITE BLOOD COUNT (AUTO) 9.8 K/uL (4.8-10.8)
[2018-03-29] MEDS: PANTOPRAZOLE SODIUM 40 MG TABLET.DR PO SCH (09:18)
[2018-03-29] MEDS: ATORVASTATIN CALCIUM 20 MG TABLET PO SCH (09:18)
[2018-03-29] MEDS: LACTOBACILLUS RHAMNOSUS GG 1 EACH CAP.SPRINK PO SCH ×2 (09:18→17:50)
[2018-03-29] MEDS: GABAPENTIN 300 MG CAPSULE PO SCH ×2 (09:18→20:40)
[2018-03-29] MEDS: TRAZODONE HCL 50 MG TAB PO SCH (20:40)
[2018-03-29] MEDS: CITALOPRAM 20 MG TABLET PO SCH (20:40)
[2018-03-30] VITALS (7 sets, daily range): BP systolic 108–138; BP diastolic 64–78
[2018-03-30] MEDS: HYDROCODONE/ACETAMINOPHEN 10/325 MG TAB PO PRN ×6 (02:02→22:52)
[2018-03-30 05:20] LABS: BASOPHILS % (AUTO) 1.3 % (0.0-5.0); EOSINOPHILS % (AUTO) 1.5 % (0.0-8.0); HEMATOCRIT 25.9 % (42-54); LYMPHOCYTES % (AUTO) 19.3 % (21.0-51.0); MEAN CORPUSCULAR HEMOGLOBIN 30.1 pg (27.0-33.0); MEAN CORPUSCULAR HGB CONC 34.4 g/dL (32.0-36.0); MEAN CORPUSCULAR VOLUME 87.6 fL (79-99); MONOCYTES % (AUTO) 6.7 % (3.0-13.0); NEUTROPHILS % (AUTO) 71.2 % (40.0-77.0); NUCLEATED RED BLOOD CELLS 1.7 % (0.0-0.19); PLATELET COUNT (AUTO) 108 K/uL (130-400); RED BLOOD CELL COUNT(AUTO) 2.96 MIL/uL (4.50-6.20); RED CELL DISTRIBUTION WIDTH 15.1 % (11.0-15.5)
[2018-03-30 05:30] LABS: POTASSIUM 3.9 mmol/L (3.5-5.1)
[2018-03-30] MEDS: METRONIDAZOLE 500 MG TABLET PO SCH ×3 (06:08→20:54)
[2018-03-30] MEDS: ATORVASTATIN CALCIUM 20 MG TABLET PO SCH (09:16)
[2018-03-30] MEDS: GABAPENTIN 300 MG CAPSULE PO SCH ×2 (09:16→20:54)
[2018-03-30] MEDS: PANTOPRAZOLE SODIUM 40 MG TABLET.DR PO SCH (09:16)
[2018-03-30] MEDS: LACTOBACILLUS RHAMNOSUS GG 1 EACH CAP.SPRINK PO SCH ×2 (09:16→15:02)
[2018-03-30] MEDS: CITALOPRAM 20 MG TABLET PO SCH (20:53)
[2018-03-30] MEDS: TRAZODONE HCL 50 MG TAB PO SCH (20:54)
[2018-03-31 04:00] VITALS: BP 136/76
[2018-03-31] MEDS: HYDROCODONE/ACETAMINOPHEN 10/325 MG TAB PO PRN ×3 (04:01→16:04)
[2018-03-31] MEDS: METRONIDAZOLE 500 MG TABLET PO SCH ×2 (07:15→15:04)
[2018-03-31 07:45] VITALS: BP 141/72
[2018-03-31] MEDS: LACTOBACILLUS RHAMNOSUS GG 1 EACH CAP.SPRINK PO SCH ×2 (08:00→16:03)
[2018-03-31] MEDS: PANTOPRAZOLE SODIUM 40 MG TABLET.DR PO SCH (09:00)
[2018-03-31] MEDS: ATORVASTATIN CALCIUM 20 MG TABLET PO SCH (09:00)
[2018-03-31] MEDS: GABAPENTIN 300 MG CAPSULE PO SCH (09:00)
[2018-03-31 12:13] VITALS: BP 123/66
[2018-03-31 16:00] VITALS: BP 119/68
[2018-03-31] MEDS ORDERED: METR500T PO (16:26)
== END 2018-03-31 19:30 | disposition home or self-care (01) | DRG 871 ==
LOC: EDH 08:36 → EDHIP 12:34 → 4BH 13:16 → 3DH 03-24 17:45
PROVIDERS: ADMIT Family Medicine; ATTEND Family Medicine
PROC: 30233N1 Transfusion of Nonautologous Red Blood Cells into Peripheral Vein, Percutaneous Approach (ICD-10-PCS; principal; 2018-03-22)
DX: A41.9 Sepsis, unspecified organism (principal); R53.2 Functional quadriplegia; M48.56XA Collapsed vertebra, not elsewhere classified, lumbar region, initial encounter for fracture; A04.72 Enterocolitis due to Clostridium difficile, not specified as recurrent; E87.1 Hypo-osmolality and hyponatremia; I50.32 Chronic diastolic (congestive) heart failure; E44.0 Moderate protein-calorie malnutrition; D68.9 Coagulation defect, unspecified; J90 Pleural effusion, not elsewhere classified; M41.9 Scoliosis, unspecified; G89.4 Chronic pain syndrome; F55.8 Abuse of other non-psychoactive substances; Z96.651 Presence of right artificial knee joint; M43.10 Spondylolisthesis, site unspecified; D69.1 Qualitative platelet defects; I11.0 Hypertensive heart disease with heart failure; E78.5 Hyperlipidemia, unspecified; Z16.20 Resistance to unspecified antibiotic; F32.9 Major depressive disorder, single episode, unspecified; D64.9 Anemia, unspecified; D69.6 Thrombocytopenia, unspecified; K80.20 Calculus of gallbladder without cholecystitis without obstruction; Z68.31 Body mass index [BMI] 31.0-31.9, adult; Z79.891 Long term (current) use of opiate analgesic; Z74.01 Bed confinement status
CPT/HCPCS: 36415; 36430; 36600; 71045; 72131; 72148; 76705; 80048; 80053; 81001; 82270; 82607; 82746; 82803; 83540; 83550; 83605; 83735; 83880; 83883; 84153; 84156; 84166; 85014; 85018; 85025; 85027; 85576; 85651; 86325; 86334; 86850; 86900; 86901; 86922; 87040; 87507; 93005; 93306; 93970; 97039; J1170; J1885; J2405; J2543; J3370; J3475; J3490; J7030; J7040; P9016